=== PATIENT | female | born 1980 | race African-American/Black ===

== ENCOUNTER 2025-07-12 14:45 | Inpatient (IN) | payer OTHER ==
[~2025-07-12] VITALS: Ht 160 cm; Wt 98.9 kg
[2025-07-12 15:25] LABS: PLATELET COUNT (AUTO) 219 K/uL (179-408); RED BLOOD CELL COUNT(AUTO) 3.40 MIL/uL (3.63-4.92); RED CELL DISTRIBUTION WIDTH 13.9 % (12.3-17.7); WHITE BLOOD COUNT (AUTO) 5.0 K/uL (3.8-11.8)
[2025-07-12] MEDS ORDERED: ACET160E76 GT (15:26)
[2025-07-12] MEDS ORDERED: CALC500T52 GT (15:26)
[2025-07-12] MEDS ORDERED: THIA100T78 GT (15:26)
[2025-07-12] MEDS ORDERED: ESCI10TA GT (15:26)
[2025-07-12] MEDS ORDERED: HYDR-4209 GT (15:26)
[2025-07-12] MEDS ORDERED: DOCU100T2 GT (15:26)
[2025-07-12] MEDS ORDERED: POLY17PO4 GT (15:26)
[2025-07-12] MEDS ORDERED: MULT9LIQ9 GT (15:26)
[2025-07-12] MEDS ORDERED: IPRA3AMP23 IH (15:26)
[2025-07-12] MEDS ORDERED: TRAZ-182 GT (15:26)
[2025-07-12] MEDS ORDERED: CLON0.5T4 GT (15:26)
[2025-07-12] MEDS ORDERED: INSU100V28 SQ (15:26)
[2025-07-12] MEDS ORDERED: FOLI1TAB94 GT (15:26)
[2025-07-12] MEDS ORDERED: ACET-2605 GT (15:26)
[2025-07-12] MEDS ORDERED: APIX2.5T GT (15:26)
[2025-07-12] MEDS ORDERED: MAGN400O6 GT (15:26)
[2025-07-12] MEDS ORDERED: METO5TAB87 GT (15:26)
[2025-07-12] MEDS ORDERED: PANT40TA49 GT (15:26)
[2025-07-12] MEDS ORDERED: CHOL2000 GT (15:26)
[2025-07-12] MEDS ORDERED: HALO2TAB GT (15:26)
[2025-07-12] MEDS ORDERED: ASCO500C18 GT (15:26)
[2025-07-12] MEDS ORDERED: DEXT1DRO3 EACHEYE (15:26)
[2025-07-12] MEDS ORDERED: NA P133E RC (15:26)
[2025-07-12] MEDS ORDERED: BISA10SU61 RC (15:26)
[2025-07-12] MEDS ORDERED: VALP500S GT ×2 (15:26)
[2025-07-12 15:27] LABS: *BILIRUBIN,URIN NEGATIVE (NEGATIVE); *BLOOD, URINE 2+ (NEGATIVE); *CLARITY,URINE TURBID (CLEAR); *COLOR,URINE YELLOW (YELLOW); *KETONES,URINE NEGATIVE (NEGATIVE); *PROTEIN,URINE 2+ (NEGATIVE); *UROBILINOGEN,URINE 0.2 E.U./dl (NORMAL); LEUKOCYTE ESTERASE ,URINE 3+ (NEGATIVE); NITRITE, URINE NEGATIVE (NEGATIVE); UGLUCOSE NEGATIVE (NEGATIVE)
[2025-07-12 15:34] LABS: CREATININE 0.6 mg/dL (0.6-1.3); SODIUM SERUM 139 mmol/L (136-145); UREA NITROGEN, BLOOD 23 mg/dL (7-18)
[2025-07-12 15:38] LABS: ASPARTATE AMINOTRANSFERASE 17 U/L (15-37); TOTAL PROTEIN, SERUM 8.2 g/dL (6.4-8.2)
[2025-07-12 15:41] LABS: TRIPLE PHOSPHATE CRYSTAL,UR FEW /HPF (NONE SEEN)
[2025-07-12 15:42] LABS: *URINE HCG, QUAL NEGATIVE (NEGATIVE)
[2025-07-12 15:43] LABS: SQUAMOUS EPITHELIAL CELL,UR FEW /HPF (NONE SEEN)
[2025-07-12] MEDS ORDERED: CEFTRIAXONE /D5W 50ML IVPB **ER PYXIS IV ONE (17:06)
[2025-07-12] MEDS: IV NORMAL SALINE 1000 ML BAG IV ONE (17:12)
[2025-07-12] MEDS ORDERED: MAGNESIUM HYDROXIDE 30 ML LIQUID UDC PO PRN (17:30)
[2025-07-12] MEDS ORDERED: DEXTROSE 50% 50 ML DISP.SYRIN IV PRN (17:30)
[2025-07-12] MEDS ORDERED: INSULIN REGULAR, HUMAN 1000 UNIT/10 ML VIAL SQ PRN (17:30)
[2025-07-12] MEDS ORDERED: ACETAMINOPHEN 325 MG TABLET GT PRN (17:30)
[2025-07-12] MEDS ORDERED: FLEET ENEMA 133 ML BOTTLE RC PRN (17:30)
[2025-07-12] MEDS ORDERED: REMEDY ESSENTIAL ZINC PASTE 113 GM TP PRN (17:30)
[2025-07-12] MEDS ORDERED: BISACODYL 10 MG SUPP.RECT RC PRN (17:30)
[2025-07-12] MEDS ORDERED: ONDANSETRON 4 MG/2 ML VIAL IV PRN (17:30)
[2025-07-12] MEDS ORDERED: HYDROCODONE/APAP 5-325MG TABLET GT PRN (17:30)
[2025-07-12] MEDS ORDERED: ALBUTEROL SULFATE 2.5 MG/ 0.5 ML NEBU NEB PRN (17:45)
[2025-07-12] MEDS ORDERED: IPRATROPIUM BROMIDE 0.5 MG/2.5 ML NEBU NEB PRN (17:45)
[2025-07-12 19:23] VITALS: BP 109/62
[2025-07-12 21:30] VITALS: BP 118/64; TEMP 98.4
[2025-07-12] MEDS: BLOOD SUGAR DIAGNOSTIC 1 EACH STRIP VI SCH (21:30)
[2025-07-12] MEDS: VALPROIC ACID 250 MG/5 ML LIQUID UDC GT SCH (22:59)
[2025-07-12] MEDS: TRAZODONE 50 MG TABLET GT SCH (23:00)
[2025-07-12] MEDS: CLONAZEPAM 0.5 MG TABLET GT SCH (23:00)
[2025-07-12] MEDS: ESCITALOPRAM OXALATE 10 MG TABLET GT SCH (23:00)
[2025-07-13 00:21] VITALS: BP 107/35; TEMP 98.2; O2SAT 100
[2025-07-13 04:37] VITALS: BP 100/34; TEMP 98.1; O2SAT 100
[2025-07-13] MEDS: PANTOPRAZOLE ORAL SUSPENSION 40 MG SUSPDR.PKT GT SCH (06:13)
[2025-07-13 06:48] LABS: PLATELET COUNT (AUTO) 199 K/uL (179-408); RED BLOOD CELL COUNT(AUTO) 3.22 MIL/uL (3.63-4.92); RED CELL DISTRIBUTION WIDTH 13.7 % (12.3-17.7); WHITE BLOOD COUNT (AUTO) 5.5 K/uL (3.8-11.8)
[2025-07-13 07:03] LABS: CREATININE 0.6 mg/dL (0.6-1.3); SODIUM SERUM 141 mmol/L (136-145); UREA NITROGEN, BLOOD 17 mg/dL (7-18)
[2025-07-13 07:50] VITALS: BP 137/60; TEMP 98; O2SAT 96
[2025-07-13] MEDS: DOCUSATE SODIUM 100 MG/10 ML LIQUID UDC GT SCH (08:54)
[2025-07-13] MEDS: CALCIUM CARBONATE 500 MG TABLET GT SCH (08:58)
[2025-07-13] MEDS: CHOLECALCIFEROL 1,000 UNIT TABLET GT SCH (08:58)
[2025-07-13] MEDS: VALPROIC ACID 250 MG/5 ML LIQUID UDC GT SCH (08:58)
[2025-07-13] MEDS: ASCORBIC ACID 500 MG TABLET GT SCH (08:58)
[2025-07-13] MEDS: MULTIVIT, IRON, MIN NO. 8, FA TABLET GT SCH (08:59)
[2025-07-13] MEDS: METOCLOPRAMIDE HCL 5 MG TABLET GT SCH (08:59)
[2025-07-13] MEDS: THIAMINE HCL 100 MG TABLET GT SCH (08:59)
[2025-07-13] MEDS: HALOPERIDOL 1 MG TABLET GT SCH (09:00)
[2025-07-13] MEDS ORDERED: HALOPERIDOL 2 MG TABLET GT SCH (09:00)
[2025-07-13] MEDS: FOLIC ACID 1 MG TABLET GT SCH (09:11)
[2025-07-13] MEDS: APIXABAN 2.5 MG TABLET GT SCH (09:12)
[2025-07-13] MEDS: GLUCERNA 1.2 1000ML LIQUID GT PRN (10:48)
[2025-07-13 11:14] VITALS: BP 144/42; TEMP 98; O2SAT 100
[2025-07-13 15:26] VITALS: BP 137/53; TEMP 98.4; O2SAT 100
[2025-07-13 23:59] VITALS: BP 127/85; TEMP 99.4; O2SAT 94
[2025-07-14] VITALS: BP 94/62; TEMP 99.4; O2SAT 94
[2025-07-14 04:05] VITALS: O2SAT 94
[2025-07-14 05:32] VITALS: BP 110/56; TEMP 98.8; O2SAT 97
[2025-07-14] MEDS: GLUCERNA 1.2 1000ML LIQUID GT PRN (06:32)
[2025-07-14 07:54] LABS: PLATELET COUNT (AUTO) 196 K/uL (179-408); RED BLOOD CELL COUNT(AUTO) 2.94 MIL/uL (3.63-4.92); RED CELL DISTRIBUTION WIDTH 13.7 % (12.3-17.7); WHITE BLOOD COUNT (AUTO) 6.5 K/uL (3.8-11.8)
[2025-07-14 08:08] LABS: CREATININE 0.8 mg/dL (0.6-1.3); SODIUM SERUM 141.0 mmol/L (136-145); UREA NITROGEN, BLOOD 17.0 mg/dL (7-18)
[2025-07-14 11:42] VITALS: BP 142/73; TEMP 97.9; O2SAT 100
[2025-07-14] MEDS ORDERED: CEFT2PIG IV (12:04)
[2025-07-14 15:01] VITALS: O2SAT 94
== END 2025-07-14 13:45 | DRG 198 ==
LOC: ER 14:45 → TELE3 20:31 → MEDSURG3 07-13 10:51
DX: I24.9 Acute ischemic heart disease, unspecified (principal); G93.41 Metabolic encephalopathy; T83.511A Infection and inflammatory reaction due to indwelling urethral catheter, initial encounter; F25.9 Schizoaffective disorder, unspecified; R13.10 Dysphagia, unspecified; N39.0 Urinary tract infection, site not specified; Z79.01 Long term (current) use of anticoagulants; B96.4 Proteus (mirabilis) (morganii) as the cause of diseases classified elsewhere; F32.A Depression, unspecified; R07.9 Chest pain, unspecified; N31.9 Neuromuscular dysfunction of bladder, unspecified; K21.9 Gastro-esophageal reflux disease without esophagitis; Z93.1 Gastrostomy status; Z79.899 Other long term (current) drug therapy; Z79.4 Long term (current) use of insulin; Z86.718 Personal history of other venous thrombosis and embolism; Z98.84 Bariatric surgery status; Z74.01 Bed confinement status
CPT/HCPCS: 36415; 71045; 83605; 83735; 84100; 84443; 84484; 84703; 85025; 85730; 87040; 87077; 87086; 93307; A4606; A4663; A6213; G0378; J0696; J1815; J7040; J8597